=== PATIENT | male | born 1960 | race Caucasian/White ===

== ENCOUNTER → 2020-06-05 | Outpatient (CLI) | payer BC, OTHER ==
[~2020-06-05] MED LIST: BAYER CHEWABLE81 MG PO; CLARITIN10 MG PO; FISH OIL 1,0001 EAC8 PO; FLONASE 0.05%50 MCG NASAL; MULTI VITAMIN1 EACH PO; SINGULAIR 10 MG10 M1 PO; VITAMINC500 PO
== END ==
LOC: SJCVCIMAG 08:04
PROVIDERS: ATTEND Internal Medicine
DX: R06.09 Other forms of dyspnea (principal); I10 Essential (primary) hypertension; E78.5 Hyperlipidemia, unspecified

== ENCOUNTER → 2020-06-12 | Outpatient (CLI) | payer BC, OTHER | LOC: RAD 13:44 | PROVIDERS: ATTEND Internal Medicine | DX: Z12.2 Encounter for screening for malignant neoplasm of respiratory organs (principal); I25.10 Atherosclerotic heart disease of native coronary artery without angina pectoris; Z87.891 Personal history of nicotine dependence; M47.814 Spondylosis without myelopathy or radiculopathy, thoracic region ==

== ENCOUNTER → 2020-06-12 | Outpatient (CLI) | payer OTHER | LOC: RAD 13:31 | PROVIDERS: ATTEND Internal Medicine | DX: Z13.6 Encounter for screening for cardiovascular disorders (principal); I25.10 Atherosclerotic heart disease of native coronary artery without angina pectoris; E78.00 Pure hypercholesterolemia, unspecified ==